=== PATIENT | female | born 1955 | race Caucasian/White ===

== ENCOUNTER → 2017-11-24 | Day surgery (SDC) | payer OTHER ==
[2017-11-19 15:01] VITALS: Ht 157.5 cm; Wt 68.2 kg
[~2017-11-24] VITALS: Ht 157.5 cm; Wt 68.2 kg
[~2017-11-24] MED LIST: CALC500C70 PO; CHOL2000 PO; ENDOSCOPIC MARKER 5 ML SYR ONE; FENTANYL CITRATE INJ 50 MCG/1 ML 2 ML VIAL ONE; LIDOCAINE HCL 2% 2 ML VIAL (20MG/ML) ONE; LYSI500C2 PO; METOCLOPRAMIDE HCL INJ 5 MG/ML 2 ML VIAL ONE; MIDAZOLAM HCL 1 MG/ML 2ML VIAL ONE; ONDANSETRON INJ 2 MG/ML 2 ML VIAL ONE; PROPOFOL IV EMULSION 10 MG/ML 20 ML VIAL ONE; SODIUM CHLORIDE 0.9% 500ML 500 ML IV ONE
[2017-11-24 08:23] VITALS: TEMP 36.3
--- NOTE | 2017-11-24 08:26 | Endo History and Physical ---
History & Physical Date of Service: Nov 24, 2017. Chief Complaint: HISTORY OF POLYPS Referring Physician: DR. IRA DEVI History of Present Illness Prior difficult polyp on colonoscopy, needs resection. Past Surgical History Hx Cardiac Surgery: No Hx Internal Defibrillator: No Hx Pacemaker: No Hx Abdominal Surgery: Yes (TUBAL LIGATION, HYSTER) Hx of Implantable Prosthesis: No Hx Post-Op Nausea and Vomiting: Yes (SEVERE POST OP N/V) Hx Cancer Surgery: No Hx Thoracic Surgery: No Hx Orthopedic: Yes (RT FOOT SURGERY) Hx Urinary Tract Surgery: No Family History None Social History Smoking Status: Never Smoker Hx Substance Use: No Hx Alcohol Use: Yes (SOCIALLY) Allergies Coded Allergies: No Known Allergies (Verified , 11/24/17) Current Medications Reported Home Medications Medications Dose Route/Sig Max Daily Dose Days Date Category Vitamin D3 (Cholecalciferol) 2,000 Unit Cap 1 Cap PO DAILY 09/30/17 Reported Lysine 500 Mg Cap 1 Cap PO DAILY 09/30/17 Reported Os-Mauricio 500 Plus D (Calcium/Vitamin D) Tab 1 Tab PO DAILY 09/30/17 Reported Vital Signs Weight (Kilograms): 68.18 Height (Feet): 5 Height (Inches): 2 Physical Exam General Appearance: no apparent distress Respiratory/Chest: Auscultation: breath sounds normal Cardiovascular: Heart Auscultation: RRR Abdomen: Inspection & Palpation: soft, non-distended Assessment and Plan Stable for colonoscopy and consented
--- NOTE | 2017-11-24 09:49 | Discharge Instructions ---
Endoscopy Patient Instructions Date / Procedure(s) Performed Nov 24, 2017. Colonoscopy Allergy Information Coded Allergies: No Known Allergies (Verified , 11/24/17) Discharge Date / Findings Nov 24, 2017. Large polyp at Hepatic flexure, completely removed in piecemeal. APCed the edges. Medication Instructions Stopped Medication(s): ROUTINE VITIMANS WERE HELD Provider Instructions Activity Restrictions - No exercising or heavy lifting for 24 hours. - Do not drink alcohol the day of the procedure. - Do not drive a car or operate machinery until the day after the procedure. - Do not make any important decisions or sign important papers in 24 hours after the procedure. Following Day: - Return to full activity which may include returning to work/school. Diet Start your diet with liquids and light foods (jello, soup, juice, toast). Then eat your usual diet if not nauseated. Treatment For Common After Affects For mild abdominal pain, bloating, or excessive gas: - Rest - Eat lightly - Lie on right side Follow-Up Information Follow-up with DR. IRA DEVI as scheduled Anesthesia Information What You Should Know You have had a procedure that required some medicine to reduce anxiety and discomfort. This treatment is called moderate sedation. After receiving the treatment, you may be sleepy, but you will be able to breathe on your own. The effects of the treatment may last for several hours. Follow these instructions along with Activity/Diet recommendations noted above: * Do NOT do anything where dizziness or clumsiness would be dangerous. * Rest quietly at home today, then you can be up and about tomorrow. * Have a responsible person stay with you the rest of today. * You may have had an I.V. today. If so, you may take the dressing off later today. Recommendations Call your doctor if: * Trouble breathing * Continuous vomiting for more than 24 hours * Temperature above 101 degrees * Severe abdominal pain or bloating * Pain not relieved by pain medicine ordered * There is increased drainage or redness from any incision * A large amount of rectal bleeding greater than 2-3 tablespoons. (If you had a polyp/s removed or have hemorrhoids, a small amount of blood - from the rectum is to be expected.) * You have any unanswered questions or concerns. IN THE EVENT OF A SERIOUS EMERGENCY, GO TO THE NEAREST EMERGENCY ROOM Your discharge instructions were prepared by provider Charmaine Dominguez. Patient Instructions Signature Page Yolanda Radha Patient (or Guardian) Signature/Date: I have read and understand the instructions given to me by my caregivers. Caregiver/RN/Doctor Signature/Date: The above-named patient and/or guardian has received patient instructions on this date. + Original Patient Signature Page (only) stays with chart. Please make copy for patient.
--- NOTE | 2017-11-24 09:53 | Anesthesiology Progress Note ---
Anesthesia Post Op Note Date & Time Nov 24, 2017 at 09:53 Vital Signs Pain Intensity: 0 Vital Signs Past 12 Hours Date Time Temp Pulse Resp B/P (MAP) Pulse Ox O2 Delivery O2 Flow Rate FiO2 11/24/17 09:51 57 16 127/63 (84) 99 Room Air 11/24/17 08:23 36.3 63 16 150/67 (94) 99 Room Air Notes Mental Status: alert / awake / arousable, participated in evaluation Pt Amnestic to Procedure: Yes Nausea / Vomiting: adequately controlled Pain: adequately controlled Airway Patency, RR, SpO2: stable & adequate BP & HR: stable & adequate Hydration State: stable & adequate Anesthetic Complications: no major complications apparent
--- NOTE | 2017-11-24 10:06 | GI REPORT ---
Patient Name: Yolanda Garcia Procedure Date: 11/24/2017 8:35 AM Date of : 1955 Admit Type: Outpatient Age: 61 Gender: Female Attending MD: Charmaine Dominguez MD Procedure: Colonoscopy Providers: Charmaine Dominguez MD Referring MD: Bob Mitchell Indications: Therapeutic procedure for colon polyps Medicines: Monitored Anesthesia Care Complications: No immediate complications. Estimated Blood Loss: Estimated blood loss: none. Procedure: Pre-Anesthesia Assessment: - Prior to the procedure, a History and Physical was performed, and patient medications and allergies were reviewed. The patient is competent. The risks and benefits of the procedure and the sedation options and risks were discussed with the patient. All questions were answered and informed consent was obtained. Patient identification and proposed procedure were verified by the physician and the nurse in the procedure room. Mental Status Examination: alert and oriented. Airway Examination: normal oropharyngeal airway and neck mobility. Respiratory Examination: clear to auscultation. CV Examination: normal. ASA Grade Assessment: II - A patient with mild systemic disease. After reviewing the risks and benefits, the patient was deemed in satisfactory condition to undergo the procedure. The anesthesia plan was to use monitored anesthesia care (MAC). Immediately prior to administration of medications, the patient was re-assessed for adequacy to receive sedatives. The heart rate, respiratory rate, oxygen saturations, blood pressure, adequacy of pulmonary ventilation, and response to care were monitored throughout the procedure. The physical status of the patient was re-assessed after the procedure. After I obtained informed consent, the scope was passed under direct vision. Throughout the procedure, the patient's blood pressure, pulse, and oxygen saturations were monitored continuously. The scope was introduced through the anus and advanced to the terminal ileum. The colonoscopy was performed without difficulty. The patient tolerated the procedure well. The quality of the bowel preparation was good. The terminal ileum, ileocecal valve, appendiceal orifice, and rectum were photographed. Findings: The perianal and digital rectal examinations were normal. The terminal ileum appeared normal. A 35 mm polyp was found in the hepatic flexure. The polyp was non-granular lateral spreading. The polyp was removed with a hot snare piecemeal underwater. Resection and retrieval were complete. Verification of patient identification for the specimen was done by the physician and nurse using the patient's name and date. Vaporization for tissue destruction using argon plasma was successful. To prevent bleeding after the polypectomy, two hemostatic clips were successfully placed (MR conditional). There was no bleeding at the end of the procedure. Area was tattooed with an injection of 1 mL of Spot (carbon black). Four sessile polyps were found in the transverse colon and hepatic flexure. The polyps were 5 mm in size. These polyps were removed with a cold snare. Resection and retrieval were complete. The retroflexed view of the distal rectum and anal verge was normal and showed no anal or rectal abnormalities. Impression: - The examined portion of the ileum was normal. - One 35 mm polyp at the hepatic flexure, removed piecemeal with a hot snare (UEMR). Resected and retrieved. Treated with argon plasma coagulation (APC) at the edges. Clips (MR conditional) were placed. Tattooed. - Four 5 mm polyps in the transverse colon and at the hepatic flexure, removed with a cold snare. Resected and retrieved. - The distal rectum and anal verge are normal on retroflexion view. Recommendation: - Discharge patient to home. - Clear liquid diet for 1 day, then advance as tolerated to full liquid diet tomorrow then as tolerated. - No aspirin, ibuprofen, naproxen, or other non-steroidal anti-inflammatory drugs for 10 days after polyp removal. - Await pathology results. - Repeat colonoscopy in 6 months for surveillance after piecemeal polypectomy. - Return to referring physician. Charmaine Dominguez MD 11/24/2017 10:06:24 AM This report has been signed electronically. Note Initiated On: 11/24/2017 8:35 AM Number of Addenda: 0 I attest to the content of the Intraoperative Record and orders documented therein, exceptions below {[id number]}
[2017-11-24 10:17] VITALS: BP 125/67; PULSE 60; O2SAT 98
== END | disposition home or self-care (01) ==
LOC: C.GI 07:50
PROVIDERS: ATTEND Student in an Organized Health Care Education/Training Program
DX: D12.3 Benign neoplasm of transverse colon (principal); Z86.010 Personal history of colon polyps; Z90.710 Acquired absence of both cervix and uterus